=== PATIENT | male | born 1980 | race Caucasian/White ===

== ENCOUNTER → 2020-03-04 14:47 | Outpatient (CLI) | payer OTHER, SELFPAY | PROVIDERS: Visit Provider Physician Assistant | DX: J02.9 Acute pharyngitis, unspecified (principal) | CPT/HCPCS: 87070 ==

== ENCOUNTER → 2021-12-27 07:54 | Outpatient (CLI) | payer OTHER, SELFPAY ==
--- NOTE | 2021-12-27 | DI.ECHO.S_ITS ---
[facility] +---------+ : : [address] : [place] : : : : [id number] : : : : Phone: [phone]---------+ Echocardiogram Report + + :Name: MINH RAMON Study Date: 12/27/2021 Height: 71 in : :[facility] ReadingLocation: Weight: 185 lb : : Gender: Male BSA: 2.0 m2 : :: 1980 Age: 41 yrs BP: 125/71 mmHg: :Reason For Study: Palpitations : :Ordering Physician: : :SERGEI BEDOLLA Performed By: Matthew Puga : :Referring: SERGEI BEDOLLA : + + Interpretation Summary Normal echo study. Procedure: A two-dimensional transthoracic echocardiogram with color flow and Doppler was performed. The study quality was technically adequate. There is no prior echocardiogram noted for this patient. The patient was in normal sinus rhythm during the exam. Left Ventricle: The left ventricle is normal in size and wall thickness. Left ventricular systolic function is normal. The ejection fraction is estimated to be 55-60%. There are no focal wall motion abnormalities. Diastolic parameters suggest probable normal left ventricular diastolic function and normal filling pressures. Right Ventricle: The right ventricle is normal in size and function. Atria: The left atrial size is normal. Right atrium not well visualized. The interatrial septum grossly appears intact with no obvious evidence for an atrial septal defect. Mitral Valve: The mitral valve is normal in structure and function. There is no mitral regurgitation noted. Aortic Valve: The aortic valve is normal in structure and function. No aortic regurgitation is present. Tricuspid Valve: The tricuspid valve is normal in structure and function. There is trace tricuspid regurgitation. Pulmonary artery pressures cannot be estimated because of the lack of a measurable TR jet velocity. Pulmonic Valve: The pulmonic valve is normal in structure and function. There is trace pulmonic regurgitation. Great Vessels: The aortic root is normal size. The dimensions of the ascending aorta are normal. The IVC is of normal diameter and collapses greater than 50% with a sniff. This suggests a low right atrial pressure of 3 mm Hg. Pericardium/ Pleura There is no pericardial effusion. There is no pleural effusion. MMode/2D Measurements & Calculations LVIDd: 5.0 cm LVOT diam: 2.3 cm LVIDs: 3.5 cm Ao root diam: 3.5 cm FS: 29.2 % asc Aorta Diam: 3.4 cm IVSd: 0.83 cm LVPWd: 0.95 cm LV trevizo. diameter/BSA (cm/m^2): 2.4 LV sys. diameter/BSA (cm/m^2): 1.7 LA A2 area: 18.3 cm2 RA long axis: 5.0 cm LA A4 area: 23.9 cm2 RA area: 15.5 cm2 LA length (vol): 5.3 cm RA vol: 40.5 ml LA vol: 70.3 ml RA : 19.8 ml/m2 LA vol index: 34.5 ml/m2 TAPSE: 2.7 cm LA A2C-A/L_phl: 17.1 cm2 Doppler Measurements & Calculations Ao V2 max: 137.5 cm/sec LVOT Max Jeancarlos: 104.8 cm/sec Ao V2 mean: 87.0 cm/sec LV V1 max P.4 mmHg Ao max P.6 mmHg LV V1 VTI: 22.0 cm Ao mean P.6 mmHg JANET(I,D): 3.5 cm2 Ao V2 VTI: 25.8 cm JANET(V,D): 3.2 cm2 sev ratio: 0.85 JANET indexed to BSA (cm^2/m^2): 1.7 MV E max jeancarlos: 77.5 cm/sec SV(LVOT): 91.2 ml MV A max jeancarlos: 69.5 cm/sec MV E/A: 1.1 Med Peak E' Jeancarlos: 10.1 cm/sec E/E' med: 7.7 Lat Peak E' Jeancarlos: 17.7 cm/sec E/E' lat: 4.4 E/e' average: 6.0 MV dec time: 0.23 sec Electronically signed by: Quique Johnson on Reading Physician:12/27/2021 09:58 AM
== END ==
PROVIDERS: PCP Nurse Practitioner Family; Referring Provider Nurse Practitioner Family; Visit Provider Nurse Practitioner Family
DX: R00.2 Palpitations (principal); R94.31 Abnormal electrocardiogram [ECG] [EKG]; I10 Essential (primary) hypertension
CPT/HCPCS: 93306